=== PATIENT | male | born 1970 | race African-American/Black ===

== ENCOUNTER 2019-04-12 11:21 | Emergency (ER) | payer MEDICAID ==
[2019-04-12 13:08] LABS: APPEARANCE,URINE CLEAR; BILIRUBIN,URINE NEGATIVE (NEGATIVE); COLOR,URINE YELLOW; GLUCOSE, URINE NEGATIVE (NEGATIVE); KETONES,URINE NEGATIVE (NEGATIVE); LEUKOCYTE ESTERASE,URINE NEGATIVE (NEGATIVE); NITRITE,URINE NEGATIVE (NEGATIVE); PROTEIN,URINE NEGATIVE (NEGATIVE); URINE SPECIFIC GRAVITY 1.014
[2019-04-12 13:13] LABS: ADD MANUAL MICROSCOPIC YES
[2019-04-12 13:21] LABS: HEMATOCRIT 42.4 % (37.9-51.0); HEMOGLOBIN 14.4 g/dL (13.5-17.0); MEAN CORPUSCULAR VOLUME 79 fl (80-97); PLATELET COUNT 157 10^3/uL (150-450); RED BLOOD COUNT 5.34 10^6/uL (4.35-5.55); RED CELL DISTRIBUTION WIDTH 16.1 % (11.5-14.0); WHITE BLOOD COUNT 5.7 10^3/uL (4.0-10.5)
[2019-04-12 13:25] LABS: BACTERIA,URINE TRACE /HPF
[2019-04-12 13:26] LABS: ALBUMIN 4.1 g/dL (3.5-5.0); ALKALINE PHOSPHATASE 58 U/L (38-126); ANION GAP 7 (5-19); ASPARTATE AMINO TRANSFERASE 18 U/L (17-59); BILIRUBIN,DIRECT 0.1 mg/dL (0.0-0.4); BILIRUBIN,TOTAL 1.3 mg/dL (0.2-1.3); BLOOD UREA NITROGEN 12 mg/dL (7-20); C-REACTIVE PROTEIN 8.7 mg/L (<10.0); CALCIUM 8.9 mg/dL (8.4-10.2); CARBON DIOXIDE 32 mmol/L (22-30); CHLORIDE 103 mmol/L (98-107); GLUCOSE 111 mg/dL (75-110); POTASSIUM 4.4 mmol/L (3.6-5.0); TOTAL PROTEIN 6.9 g/dL (6.3-8.2)
[2019-04-12 13:38] LABS: ABSOLUTE LYMPHOCYTES# (MANUAL) 1.1 10^3/uL (0.5-4.7); ABSOLUTE MONOCYTES # (MANUAL) 0.3 10^3/uL (0.1-1.4); BASOPHILS % (MANUAL) 0 % (0-2); EOSINOPHILS % (MANUAL) 4 % (0-6); LYMPHOCYTES % (MANUAL) 18 % (13-45); METAMYELOCYTES % (MANUAL) 1 % (0); MONOCYTES % (MANUAL) 5 % (3-13); SEGMENTED NEUTROPHILS % (MAN) 70 % (42-78); TOTAL CELLS COUNTED 100
[2019-04-12 13:39] LABS: ANISOCYTOSIS 1+; POIKILOCYTOSIS 1+; TEAR DROP CELLS 1+
[2019-04-12 13:40] LABS: HYPOCHROMASIA SLIGHT; PLATELET COMMENT ADEQUATE
[2019-04-12 13:50] LABS: ERYTHROCYTE SEDIMENTATION RATE 8 mm/hr (0-15)
[2019-04-12] MEDS ORDERED: VALACYCLOVIR HCL 500 MG TABLET PO ONE (17:11)
[2019-04-12] MEDS ORDERED: ERYTHROMYCIN 0.5% OPH OINT 1 GM UNIT DOSE OS ONE (17:15)
--- NOTE | 2019-04-12 17:20 | ER Document Report ---
ED General - General Chief Complaint: Numbness of Face Stated Complaint: FACIAL NUMBESS Time Seen by Provider: 04/12/19 11:51 TRAVEL OUTSIDE OF THE [place] IN LAST 30 DAYS: No - HPI Notes: Patient is a 48-year-old male that presents to the emergency department for chief complaint of left-sided facial numbness. Patient reports symptoms started yesterday. Today he noticed he was unable to close his left eye and his left face felt more numb. He has a history of anal herpes but denies history of Dove's palsy in the past. He denies any new medications or tick exposure. Patient denies any extremity numbness or weakness. He has not had any fever, vision changes. He does report some pain around his left mandible and posterior auricular region. Past Medical History: Anal herpes Past Surgical History: Negative Social History: Denies drugs alcohol and tobacco Family History: Reviewed and noncontributory for presenting illness Allergies: Reviewed, see documented allergy list. REVIEW OF SYSTEMS: CONSTITUTIONAL : No fever No chills No diaphoresis No recent illness EENT: No vision changes No congestion No sore throat CARDIOVASCULAR: No chest pain No palpitations RESPIRATORY: No shortness of breath No cough No difficulty breathing GASTROINTESTINAL: No abdominal pain No nausea No vomiting No diarrhea GENITOURINARY: No dysuria No hematuria No difficulty urinating MUSCULOSKELETAL: No back pain No leg pain No arm pain SKIN: No rashes No lesions LYMPHATIC: No swollen, enlarged glands. NEUROLOGICAL: No lightheadedness No headache weakness paresthesias PSYCHIATRIC: No anxiety No depression PHYSICAL EXAMINATION: Vital signs reviewed, nursing noted reviewed. GENERAL: Well-appearing, well-nourished and in no acute distress. HEAD: Atraumatic, normocephalic. EYES: Left conjunctival injection, PERRLA, EOM, no pain with ocular movement, inability to close left eye ENT: nares patent, oropharynx clear without exudates. Moist mucous membranes. NECK: Normal range of motion, supple without lymphadenopathy LUNGS: Breath sounds clear to auscultation bilaterally and equal. No wheezes rales or rhonchi. HEART: Regular rate and rhythm without murmurs ABDOMEN: Soft, nontender, normoactive bowel sounds. No rebound, guarding, or rigidity. No masses appreciated. EXTREMITIES: Nontender, good range of motion, no pitting or edema. NEUROLOGICAL: Left upper and lower facial paralysis as well as left periorbital muscle paralysis. Paresthesias to left upper and lower face compared to right. Moves all extremities spontaneously Motor and sensory grossly intact on exam to extremities. PSYCH: Normal mood, normal affect. SKIN: Warm, Dry, normal turgor, no rashes or lesions noted on exposed skin - Related Data Allergies/Adverse Reactions: No Known Allergies Allergy (Verified 04/12/19 11:21) Past Medical History - Social History Smoking Status: Never Smoker Family History: Reviewed & Not Pertinent Patient has suicidal ideation: No Patient has homicidal ideation: No Renal/ Medical History: Denies: Hx Peritoneal Dialysis Physical Exam - Vital signs Vitals: Temp Pulse Resp BP Pulse Ox 98.3 F 87 16 126/71 H 97 04/12/19 11:27 04/12/19 11:27 04/12/19 11:27 04/12/19 11:27 04/12/19 11:27 Course - Re-evaluation Re-evalutation: 04/12/19 17:23 Vitals reviewed. Nursing notes reviewed. 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 He has some erythema to the left eye in early irritation. Patient was started on erythromycin ophthalmic and his left eye was taped closed. Patient will also be started on steroids and Valtrex. He is visiting in town from [place] and is returning home in 2 days. He was encouraged to follow with his primary care doctor and outbound supervisor in [place] when he returns. Patient counseled on return precautions to the emergency room. He is stable at discharge. His work-up is grossly unremarkable. Laboratory 04/12/19 04/12/19 04/12/19 12:48 12:48 12:48 WBC 5.7 RBC 5.34 Hgb 14.4 Hct 42.4 MCV 79 L MCH 27.0 MCHC 34.0 RDW 16.1 H Plt Count 157 Total Counted 100 Seg Neutrophils % Not Reportable Seg Neuts % (Manual) 70 Lymphocytes % Not Reportable Lymphocytes % (Manual) 18 Atypical Lymphs % 2 Monocytes % Not Reportable Monocytes % (Manual) 5 Eosinophils % Not Reportable Eosinophils % (Manual) 4 Basophils % Not Reportable Basophils % (Manual) 0 Metamyelocytes % 1 H Absolute Neutrophils Not Reportable Abs Neuts (Manual) 4.0 Absolute Lymphocytes Not Reportable Abs Lymphs (Manual) 1.1 Absolute Monocytes Not Reportable Abs Monocytes (Manual) 0.3 Absolute Eosinophils Not Reportable Absolute Eos (Manual) 0.2 Absolute Basophils Not Reportable Abs Basophils (Manual) 0.0 Platelet Comment ADEQUATE Hypochromasia SLIGHT Poikilocytosis 1+ Anisocytosis 1+ Microcytosis SLIGHT Tear Drop Cells 1+ ESR 8 Sodium 141.8 Potassium 4.4 Chloride 103 Carbon Dioxide 32 H Anion Gap 7 BUN 12 Creatinine 0.96 Est GFR ( Amer) > 60 Est GFR (Non-Af Amer) > 60 Glucose 111 H Calcium 8.9 Total Bilirubin 1.3 Direct Bilirubin 0.1 Neonat Total Bilirubin Not Reportable Neonat Direct Bilirubin Not Reportable Neonat Indirect Bili Not Reportable AST 18 ALT 9 Alkaline Phosphatase 58 C-Reactive Protein 8.7 Total Protein 6.9 Albumin 4.1 Urine Color YELLOW Urine Appearance CLEAR Urine pH 8.0 Ur Specific [place] 1.014 Urine Protein NEGATIVE Urine Glucose (UA) NEGATIVE Urine Ketones NEGATIVE Urine Blood NEGATIVE Urine Nitrite NEGATIVE Urine Bilirubin NEGATIVE Urine Urobilinogen 2.0 H Ur Leukocyte Esterase NEGATIVE Urine Bacteria TRACE Urine Mucus TRACE Urine Ascorbic Acid NEGATIVE - Vital Signs Vital signs: Temp Pulse Resp BP Pulse Ox 98.3 F 87 16 126/71 H 97 04/12/19 11:27 04/12/19 11:27 04/12/19 11:27 04/12/19 11:27 04/12/19 11:27 - Laboratory Result Diagrams: 04/12/19 12:48 04/12/19 12:48 Laboratory results interpreted by me: 04/12/19 04/12/19 04/12/19 12:48 12:48 12:48 MCV 79 L RDW 16.1 H Metamyelocytes % 1 H Carbon Dioxide 32 H Glucose 111 H Urine Urobilinogen 2.0 H Discharge - Discharge Clinical Impression: Dove's palsy Condition: Stable Disposition: HOME, SELF-CARE Instructions: Dove's Palsy ([facility]), Steroid Medication Additional Instructions: Please return to the emergency department if you have any worsening, or concern of your symptoms. Please return to the emergency department if you develop chest pain, difficulty breathing, severe abdominal pain, or ongoing vomiting. Please follow-up with your primary care physician in 2-3 days and any other recommended physicians. If prescribed, take all medications as directed. If you have any questions or concerns do not hesitate to return the emergency department for evaluation. Contact your outbound supervisor when you return to [place] for follow-up appointment in the next 3 to 5 days. Keep your left eye taped except when placing the erythromycin ointment to help prevent the eye from drying and becoming irritated Prescriptions: Erythromycin Base [Erythromycin Oph 1 Gm Oint Ud] 1 applic OS TID #7 tube Methylprednisolone [Medrol Dosepack (4 mg/Tab) 21 Tab/Dosepak] 4 mg PO ASDIR PRN #21 tab.ds.pk PRN Reason: Valacyclovir HCl [Valtrex 500 Mg Tablet] 1,000 mg PO Q8 7 Days tablet
[2019-04-12 17:46] VITALS: BP 129/68
== END 2019-04-12 17:46 | disposition home or self-care (01) ==
LOC: EDBD → ER 11:21
DX: G51.0 Bell's palsy (principal); R20.0 Anesthesia of skin
CPT/HCPCS: 36415; 80053; 81001; 85025; 85652; 86140; 99284